=== PATIENT | male | born 1940 | race Caucasian/White ===

== ENCOUNTER 2017-06-26 11:49 | Inpatient (IN) | payer OTHER ==
[~2017-06-26] VITALS: Ht 188 cm; Wt 77.8 kg
[~2017-06-26 11:49] MED LIST: CALCIUM GUMMIE1 EACH PO; CELE100 PO; ENOX40I SC; HYDCHL12.5 PO; NAPR550 PO; Nephro-Vite RX1 EA PO; OXYACE5T PO; PROM25 PO
[2017-06-26 12:41] LABS: BASOPHILS ABSOLUTE AUTO 0.01 K/mm3 (0.00-0.23); BASOPHILS PERCENT AUTO 0 % (0-2); EOSINOPHILS ABSOLUTE AUTO 0.01 K/mm3 (0.00-0.68); EOSINOPHILS PERCENT AUTO 0 % (0-6); Hematocrit 38.8 % (37.0-53.0); Hemoglobin 12.4 g/dL (13.5-17.5); IMMATURE GRAN ABSOLUTE AUTO 0.06 K/mm3 (0.00-0.10); IMMATURE GRAN PERCENT AUTO 1 % (0-1); LYMPHOCYTES ABSOLUTE AUTO 0.53 K/mm3 (0.84-5.20); LYMPHOCYTES PERCENT AUTO 5 % (21-46); MONOCYTES ABSOLUTE AUTO 0.45 K/mm3 (0.16-1.47); MONOCYTES PERCENT AUTO 4 % (4-13); Mean Corpuscular HGB 30.8 pg (26.0-34.0); Mean Corpuscular Volume 97 fL (80-100); Mean Platelet Volume 10.6 fL (9.1-12.4); NEUTROPHILS ABSOLUTE AUTO 10.27 K/mm3 (1.96-9.15); NEUTROPHILS PERCENT AUTO 91 % (41-73); Platelet Count 257 K/mm3 (150-400); RDW Coefficient Variation 15.1 % (11.7-14.2); RDW Standard Deviation 53.6 fL (35.1-46.3); Red Blood Cell Count 4.02 M/mm3 (4.30-5.90); White Blood Cell Count 11.33 K/mm3 (4.00-11.30)
[2017-06-26 13:00] LABS: Alanine Aminotransfer (ALT/SGP 50 U/L (12-78); Albumin, Blood 2.8 g/dL (3.4-5.0); Albumin/Globulin Ratio 0.6 (0.8-1.8); Alk Phos 78 U/L (50-136); Anion Gap 6 mmol/L (6-16); Aspartate Aminotrans (AST/SGOT 31 U/L (12-37); Bilirubin, Total 0.5 mg/dL (0.1-1.0); Blood Urea Nitrogen 35 mg/dL (8-24); Bun/Creatinine Ratio 45.5 (12.0-20.0); CO2, Blood 29 mmol/L (21-32); Calcium, Blood 8.5 mg/dL (8.5-10.1); Chloride, Blood 103 mmol/L (98-108); Creatinine, Blood 0.77 mg/dL (0.60-1.20); Globulin, Blood 4.8 g/dL (2.2-4.0); Glomerular Filtration Rate >60 (60-); Glucose, Blood 180 mg/dL (70-99); Potassium, Blood 3.8 mmol/L (3.5-5.5); Sodium, Blood 138 mmol/L (136-145); Total Protein, Blood 7.6 g/dL (6.4-8.2); Troponin I <0.015 ng/mL (0.000-0.040)
[2017-06-26 13:38] LABS: Influenza A Negative (NEGATIVE); Influenza B Negative (NEGATIVE)
[2017-06-26 14:39] LABS: PO2 Arterial 56.4 mmHg (80-100)
[2017-06-26] MEDS ORDERED: POTASSIUM GLUC500 MG PO (16:47)
[2017-06-27 05:22] LABS: Hematocrit 38.4 % (37.0-53.0); Hemoglobin 12.4 g/dL (13.5-17.5); Mean Corpuscular HGB 30.5 pg (26.0-34.0); Mean Corpuscular HGB Conc 32.3 g/dL (31.5-36.5); Mean Corpuscular Volume 95 fL (80-100); Mean Platelet Volume 10.6 fL (9.1-12.4); Platelet Count 259 K/mm3 (150-400); Red Blood Cell Count 4.06 M/mm3 (4.30-5.90); White Blood Cell Count 7.41 K/mm3 (4.00-11.30)
[2017-06-27 05:43] LABS: Anion Gap 4 mmol/L (6-16); Blood Urea Nitrogen 32 mg/dL (8-24); Bun/Creatinine Ratio 46.9 (12.0-20.0); CO2, Blood 34 mmol/L (21-32); Calcium, Blood 8.5 mg/dL (8.5-10.1); Chloride, Blood 103 mmol/L (98-108); Creatinine, Blood 0.68 mg/dL (0.60-1.20); Glomerular Filtration Rate >60 (60-); Glucose, Blood 105 mg/dL (70-99); Potassium, Blood 4.4 mmol/L (3.5-5.5); Sodium, Blood 141 mmol/L (136-145)
[2017-06-30] MEDS ORDERED: AZIT500 PO (12:26)
[2017-06-30] MEDS ORDERED: POTA10T PO (12:27)
[2017-06-30] MEDS ORDERED: ALBU3IS INH (12:29)
== END 2017-06-30 14:48 | disposition home or self-care (01) | DRG 189 ==
LOC: ER 11:49 → MEDS 14:28
PROVIDERS: Emergency Medicine; Family Medicine
PROC: 3E0234Z Introduction of Serum, Toxoid and Vaccine into Muscle, Percutaneous Approach (ICD-10-PCS; principal; 2017-06-28)
DX: J96.01 Acute respiratory failure with hypoxia (principal); G93.41 Metabolic encephalopathy; J18.9 Pneumonia, unspecified organism; E87.3 Alkalosis; S22.069A Unspecified fracture of T7-T8 vertebra, initial encounter for closed fracture; J44.0 Chronic obstructive pulmonary disease with (acute) lower respiratory infection; Z23 Encounter for immunization; M81.0 Age-related osteoporosis without current pathological fracture; D64.89 Other specified anemias; I10 Essential (primary) hypertension; I71.2 Thoracic aortic aneurysm, without rupture; Z79.899 Other long term (current) drug therapy; Z87.891 Personal history of nicotine dependence
CPT/HCPCS: 36415; 36600; 71046; 71250; 80048; 80053; 82803; 82947; 83880; 84484; 85025; 85027; 87804; 93005; 93010; 94640; 94760; 94761; 96365; 99285; C9113; J0696; J1650; J7030; Q2038

== ENCOUNTER 2021-02-25 15:04 | Inpatient (IN) | payer OTHER ==
[~2021-02-25] VITALS: Ht 180.3 cm; Wt 77.1 kg
[~2021-02-25 15:04] MED LIST changes: +ALBU3IS INH; +AZIT500 PO; +POTA10T PO; +POTASSIUM GLUC500 MG PO
[2021-02-25] MEDS ORDERED: Aspir 8181 MG PO (15:27)
[2021-02-25 20:37] LABS: Anion Gap 3 mmol/L (6-16); Blood Urea Nitrogen 34 mg/dL (8-24); Bun/Creatinine Ratio 30.6 (12.0-20.0); CO2, Blood 32 mmol/L (21-32); Calcium, Blood 7.7 mg/dL (8.5-10.1); Chloride, Blood 105 mmol/L (98-108); Creatinine, Blood 1.11 mg/dL (0.60-1.20); Glomerular Filtration Rate >60 (60-); Glucose, Blood 114 mg/dL (70-99); Potassium, Blood 4.1 mmol/L (3.5-5.5); Sodium, Blood 140 mmol/L (136-145)
[2021-02-25] MEDS ORDERED: FLUTICASONE-SA1 EAC9 INH (21:53)
[2021-02-25] MEDS ORDERED: TAMSULOSIN HCL0.4 M1 PO (21:53)
[2021-02-25 22:01] LABS: Mean Platelet Volume 11.6 fL (9.1-12.4); Platelet Count 131 K/mm3 (150-400)
[2021-02-25 22:33] LABS: International Normalized Ratio 0.97; Prothrombin Time Results 10.5 Sec (9.7-11.5)
[2021-02-26 04:32] LABS: Hematocrit 42.1 % (37.0-53.0); Hemoglobin 13.9 g/dL (13.5-17.5); Mean Corpuscular HGB 31.8 pg (26.0-34.0); Mean Corpuscular Volume 96 fL (80-100); Mean Platelet Volume 11.2 fL (9.1-12.4); Platelet Count 118 K/mm3 (150-400); RDW Coefficient Variation 13.9 % (11.7-14.2); RDW Standard Deviation 49.8 fL (35.1-46.3); Red Blood Cell Count 4.37 M/mm3 (4.30-5.90); White Blood Cell Count 9.57 K/mm3 (4.00-11.30)
--- NOTE | 2021-02-26 11:12 | NUR ---
RECEIVED FAXED RESULTS OF COVID TEST THAT WAS DONE 02/25/21 AT [facility]
--- NOTE | 2021-02-26 13:10 | NUR ---
1308 HEPARIN TURNED OFF PER PHARMACY ORDERS
--- NOTE | 2021-02-26 14:26 | NUR ---
to [facility] via bed
--- NOTE | 2021-02-26 15:30 | NUR ---
REPORT GIVEN TO RECEIVING RN CARLIE
[2021-02-26 16:19] LABS: Source, Urine Catheter
[2021-02-26 16:22] LABS: Appearance, Urine Clear (Clear); Bilirubin, Urine Neg (Neg); Blood, Urine 1+ (Neg); Color, Urine Yellow (P-Yellow); Glucose Qualitative, Urine Neg (Neg); Ketones, Urine 3+ (Neg); Leukocyte Esterase, Urine Neg (Neg); Nitrite, Urine Neg (Neg); Protein, Urine 2+ (Neg); Urobilinogen, Urine NORM (Normal)
--- NOTE | 2021-02-26 16:30 | NUR ---
PATIENT ARRIVAL TO PCU PATIENT ARRIVED FROM [facility]ER PEELER TO PCU BY PCU BED AT 1620. PATIENT IS A/O X4. VSS. SPO2 >90% ON 3L NC. TELE SR. PATIENT HAS A LEFT GROIN SITE WITH AN INFUSION PORT AND SHEATH PORT; SITE IS NON TENDER, NO REDDNESS, NO HEMATMA NOTED, NO BLEEDING. PATIENT IS LYING FLAT. PATIENT IS CALM, HAPPY, AND TALKING/SINGING TO HIMSELF. MONITORING VS EVERY 15 MIN AND SITE FOR THE FIRST HOUR. WILL CONTINUE TO MONITOR AND PROVIDE CARE. CALL LIGHT WITHIN REACH.
[2021-02-26 16:55] LABS: Amorphous Not Seen (0-Heavy); Bacteria Mod /hpf; Red Blood Cells, Urine 0-2 /hpf (0-2); Squamous Epithelial Cells Few /hpf (Few); White Blood Cells, Urine 0-2 /hpf (0-5)
--- NOTE | 2021-02-26 18:01 | NUR ---
SHIFT SUMMARY PATIENT IS A/OX4, ALL CRANIAL NERVES INTACT, PATIENT SINGING/TALKING TO SELF, HAPPY AND TALKATIVE. Q4 NEURO CHECKS. TELE SINUS TACHY MAX OF 110. VSS. Q15 MONITOR VS FOR Q4HR. PATIENT WAS ABLE TO EAT DINNER. PATIENT NPO AT MIDNIGHT FOR BALL MILL OPERATOR IN THE AM. PATIENT POSTIONED AT 30 DEGREES. LEFT GROIN SITE HAS NO HEMATOMA OR REDNESS. SHEATH HAS TPA INFUSING AND HEPARIN PER ORDER. NO ACUTE CHANGES. CALL LIGHT WITHIN REACH. WILL CONTINUE TO MONITOR AND PROVIDE CARE UNTIL HAND OFF WITH NEXT SHIFT.
[2021-02-26 18:30] LABS: Fibrinogen 488 mg/dL (170-430)
--- NOTE | 2021-02-26 22:51 | NUR ---
UPDATE: CONFUSION, RESTLESSNESS. PT REMAINS LAYING SUPINE, BED POSITIONED IN REVERSE [place]. PT HEARD MUMBLING TO HIMSELF, INTERMITTENTLY CALLS OUT INAPPROPRIATELY W/ SEEMINGLY RANDOM SUBJECTS, OFTEN RELATED TO HINDU. WHEN CONFRONTED, PT APPEARS SLIGHTLY AGITATED, REFERRING TO HIMSELF "YOUR GUINEA PIG". SUGGESTED PRN MELATONIN TO PT & HE IS AGREEABLE. MEDICATED ACCORDINGLY. WILL CONTINUE TO MONITOR FOR INC AGITATION & ADDRESS APPROPRIATE. APPEARS TO BE CONTINUING TO BE COMPLIANT IN KEEPING LLE STRAIGHT & LAYING SUPINE.
--- NOTE | 2021-02-27 02:00 | NUR ---
UPDATE: AGITATION & HYPOXIA. PT CONTINUES TO COMPLY W/ LAYING SUPINE, HOWEVER PT DOES NOT TOLERATE NC & OFTEN PULLS IT OUT OF HIS NOSE. WHEN ASLEEP PT DESATS TO 80s. AFTER REPLACING O2, PT QUICKLY RECOVERS. WILL CONTINUE TO MONITOR CLOSELY. PEDAL PULSES STILL FAINT TO PALPATION BUT IMPROVING. DISTAL CSM TO L GROIN SITE REMAINS INTACT.
[2021-02-27 04:59] LABS: Hematocrit 38.8 % (37.0-53.0); Hemoglobin 12.7 g/dL (13.5-17.5)
--- NOTE | 2021-02-27 07:19 | NUR ---
SHIFT SUMMARY: PT RESTED WELL T/O THE NIGHT, AWAKING FOR NURSING CARE. PT OFTEN PULLED THE NC FROM HIS NARES & DISSENTED WHEN STAFF ATTEMPTED TO REPLACE IT. SEE PREVIOUS NOTATION FOR PROGRESSION. PLAN FOR YARD HOSTLER TODAY @ APPROX 0800. DAY SHIFT UPDATED. NO ACUTE CHANGES. DISTAL CSM TO L GROIN SITE REMAINS INTACT, PULSES IMPROVED T/O THE NIGHT, NOW PALPABLE W/O DOPPLER.
--- NOTE | 2021-02-27 07:35 | NUR ---
CARE ASSUMPTION/TO SUPERVISOR MOTOR VEHICLE ASSEMBLY PATIENT A/O X4. PATIENT HAS AN ECCENTRIC BEHAVIOR, PATIENT WILL TALK TO SELF, SING TO SELF, AND SAYS BIBLE VERSES. VSS. SPO2 >90% 3L NC. TELE SINUS TACH W PAC. LEFT GROIN SITE HAS SCANT AMOUNT OF BLOOD UNDER DRESSING, THE SAME AMOUNT YESTERDAY WHEN I PROVIDED CARE, NO HEMATOMA, OR TENDERNESS. PATIENT COMPLAINS OF LEFT SIDE PAIN WHEN TAKING A DEEP BREATH, BUT UPON PALPATION IS NONTENDER, AND ABD IS NONTENDER AND SOFT, AND ACTIVE. LEFT LOWER LOBE IS WHEEZY, RIGHT LUNG IS CLEAR. PATIENT LEFT TO SUPERVISOR MOTOR VEHICLE ASSEMBLY AT 0747 WITH SUPERVISOR MOTOR VEHICLE ASSEMBLY RN AND WENT BY PCU BED.
--- NOTE | 2021-02-27 10:35 | NUR ---
PATIENT BACK FROM CHARGE ATTENDANT PATIENT ARRIVED FROM CHARGE ATTENDANT APROX 1025 FROM CHARGE ATTENDANT VIA PCU BED. VSS. PATIENT L GROIN SITE WITH NEPUTUNE BANADGAE IN PLACE AND ENCLOSED [id number]. L EXTERNAL ILIAC 2 STENTS PLACED. SITE HAS NO BLEEDING, REDDNESS, BUT SLIGHTLTY SWOLLEN COMPARED TO OTHER SIDE. PATIENT BED IN LOWEST POSITION. CALL LIGHT WITHIN REACH. Q15 VITAL FOR 4HR STARTED. WILL CONTINUE TO MONITOR AND PROVIDE CARE.
--- NOTE | 2021-02-27 13:15 | NUR ---
UPDATE PATIENT AMBULATED IN BEDROOM. RIGHT GROIN SITE BEGAN TO OOZ, THE OOZING COVERED THE PHILLY BANDAGE. PRESSURE WAS APPLIED, AND THIS RN HAD RED CROSS EXECUTIVE DIRECTOR COME TO LOOK AT. THE SITE WAS CLEANED AND NO MORE OOZING. A NEW PIHLLY BANDAGE WAS PUT IN PLACE. CALL LIGHT WITHIN REACH AND BED ALARM ON.
--- NOTE | 2021-02-27 15:00 | NUR ---
UPDATE PATIENT HAS NO OOZING AT R GROIN SITE. NO HEMATOMA, SWELLING, OR REDDNESS. PATIENT AMBULATED IN BEDROOM. NO OOZING AFTER AMBULATION. NOTIFED MD TATE. MD TATE PUT IN AN ORDER FOR PATIENT TO BE DISCHARGED. CALL LIGHT WITHIN REACH.
[2021-02-27] MEDS ORDERED: CLOP75 PO (15:43)
[2021-02-27] MEDS ORDERED: DECADRON6 M1 PO (15:45)
--- NOTE | 2021-02-27 16:58 | NUR ---
DISCHARGE EDUCATION THIS RN EDUCATED PATIENT ON DISCHARGE. THIS RN PROVIDED EDUCATION OF FEMORAL SITE AND NEW MEDICATIONS THE PATIENT WOULD BE RECEIVING, PLAVIX AND DECADRON. THIS RN CALLED [facility] FOR PATIENT TO RECEIVE NEW MEDICATIONS TODAY. PATIENT INFORMED OF FOLLOW UP WITH PCP AND MD JENKINS IN TWO WEEKS AND TO CALL ON MONDAY TO SCHEUDLE AN APPT. PATIENT BELONGINGS GATHERED AND INTO HIS OWN CLOTHES. PATIENT IV REMOVED AND OFF TELE. CALL LIGHT WITHIN REACH AND AWAITING RIDE TO ARRIVE.
--- NOTE | 2021-02-27 17:12 | NUR ---
FRANCISCO JAVIER DISCHARGED PATIENT LEFT AT 1712. PATIENT WAS TAKEN WITH ALL BELONGINGS AND DISCHARGE INSTRUCTIONS. PATIENT LEFT VIA WHEELCHAIR TO FAMILY MEMBER WHO PICKED THEM UP.
== END 2021-02-27 15:37 | disposition home or self-care (01) | DRG 253 ==
LOC: ER 15:04 → SURS 15:05 → PCU 02-26 14:02
PROVIDERS: Internal Medicine; Student in an Organized Health Care Education/Training Program; ADMIT Internal Medicine
PROC: 3E05317 Introduction of Other Thrombolytic into Peripheral Artery, Percutaneous Approach (ICD-10-PCS; 2021-02-26)
PROC: 8E0ZXY6 Isolation (ICD-10-PCS; 2021-02-26)
PROC: 047H3EZ Dilation of Right External Iliac Artery with Two Intraluminal Devices, Percutaneous Approach (ICD-10-PCS; principal; 2021-02-27)
PROC: 04FH3ZZ Fragmentation of Right External Iliac Artery, Percutaneous Approach (ICD-10-PCS; 2021-02-27)
PROC: 3E03317 Introduction of Other Thrombolytic into Peripheral Vein, Percutaneous Approach (ICD-10-PCS; 2021-02-27)
DX: I70.221 Atherosclerosis of native arteries of extremities with rest pain, right leg (principal); J96.11 Chronic respiratory failure with hypoxia; I10 Essential (primary) hypertension; J43.9 Emphysema, unspecified; M81.0 Age-related osteoporosis without current pathological fracture; Z98.890 Other specified postprocedural states; Z96.641 Presence of right artificial hip joint; Z87.891 Personal history of nicotine dependence; Z79.82 Long term (current) use of aspirin; Z79.899 Other long term (current) drug therapy; N40.0 Benign prostatic hyperplasia without lower urinary tract symptoms; I71.4 Abdominal aortic aneurysm, without rupture; Z20.822 Contact with and (suspected) exposure to COVID-19
CPT/HCPCS: 36245; 36415; 37184; 37211; 37221; 75625; 75635; 75710; 75716; 76937; 80048; 81001; 85014; 85018; 85027; 85049; 85347; 85379; 85384; 85610; 85730; 87086; 93005; 93010; 93306; 93926; 93971; 96374; 96375; 96376; 99152; 99153; 99285-25; A9270; C1725; C1751; C1757; C1760; C1769; C1876; C1887; C1894; G0378; J1644; J2060; J2250; J2997; J3010; J7030; J7040; J7050; Q9967

== ENCOUNTER 2022-04-06 18:29 | Emergency (ER) | payer OTHER ==
[~2022-04-06] VITALS: Ht 185.4 cm; Wt 81.2 kg
[~2022-04-06 18:29] MED LIST changes: +Aspir 8181 MG PO; +CLOP75 PO; +DECADRON6 M1 PO; +FLUTICASONE-SA1 EAC9 INH; +TAMSULOSIN HCL0.4 M1 PO
[2022-04-06] MEDS ORDERED: ATORVASTATIN CA20 MG PO (19:24)
[2022-04-06 19:32] LABS: BASOPHILS ABSOLUTE AUTO 0.02 K/mm3 (0.00-0.23); BASOPHILS PERCENT AUTO 0 % (0-2); EOSINOPHILS ABSOLUTE AUTO 0.01 K/mm3 (0.00-0.68); EOSINOPHILS PERCENT AUTO 0 % (0-6); Hematocrit 37.5 % (37.0-53.0); Hemoglobin 12.6 g/dL (13.5-17.5); IMMATURE GRAN ABSOLUTE AUTO 0.05 K/mm3 (0.00-0.10); IMMATURE GRAN PERCENT AUTO 0 % (0-1); LYMPHOCYTES ABSOLUTE AUTO 0.66 K/mm3 (0.84-5.20); LYMPHOCYTES PERCENT AUTO 5 % (21-46); MONOCYTES ABSOLUTE AUTO 1.21 K/mm3 (0.16-1.47); MONOCYTES PERCENT AUTO 10 % (4-13); Mean Corpuscular HGB 32.5 pg (26.0-34.0); Mean Corpuscular HGB Conc 33.6 g/dL (31.5-36.5); Mean Corpuscular Volume 97 fL (80-100); Mean Platelet Volume 11.6 fL (9.1-12.4); NEUTROPHILS ABSOLUTE AUTO 10.63 K/mm3 (1.96-9.15); NEUTROPHILS PERCENT AUTO 85 % (41-73); Platelet Count 215 K/mm3 (150-400); RDW Coefficient Variation 13.6 % (11.7-14.2); RDW Standard Deviation 48.6 fL (35.1-46.3); Red Blood Cell Count 3.88 M/mm3 (4.30-5.90); White Blood Cell Count 12.58 K/mm3 (4.00-11.30)
[2022-04-06 19:35] LABS: Albumin, Blood 3.2 g/dL (3.4-5.0); Albumin/Globulin Ratio 0.7 (0.8-1.8); Bilirubin, Total 0.4 mg/dL (0.1-1.0); Bun/Creatinine Ratio 35.6 (12.0-20.0); Calcium, Blood 9.2 mg/dL (8.5-10.1); Creatinine, Blood 0.79 mg/dL (0.60-1.20); Globulin, Blood 4.3 g/dL (2.2-4.0); Total Protein, Blood 7.5 g/dL (6.4-8.2)
[2022-04-06 21:01] LABS: Source, Urine Clean Catch
[2022-04-06 21:04] LABS: Appearance, Urine Clear (Clear); Bilirubin, Urine Neg (Neg); Blood, Urine 2+ (Neg); Color, Urine Yellow (P-Yellow); Glucose Qualitative, Urine Neg (Neg); Ketones, Urine 2+ (Neg); Leukocyte Esterase, Urine 1+ (Neg); Nitrite, Urine Neg (Neg); Protein, Urine 3+ (Neg); Urobilinogen, Urine NORM (Normal)
[2022-04-06 21:11] LABS: Hyaline Casts 0-2 /lpf (0-2)
[2022-04-06 21:12] LABS: Amorphous Light (0-Heavy); Bacteria Few /hpf; Mucus Mod (0-Heavy); Red Blood Cells, Urine 0-2 /hpf (0-2); Renal Epithelial Few /hpf (0-Rare); Squamous Epithelial Cells Few /hpf (Few); White Blood Cells, Urine 0-2 /hpf (0-5)
[2022-04-06] MEDS ORDERED: HYDR1TAB94 PO (23:51)
== END 2022-04-07 00:11 | disposition home or self-care (01) ==
LOC: ER 18:29
PROVIDERS: Physician Assistant
DX: K80.20 Calculus of gallbladder without cholecystitis without obstruction (principal); K85.90 Acute pancreatitis without necrosis or infection, unspecified; I10 Essential (primary) hypertension; J43.9 Emphysema, unspecified; Z79.899 Other long term (current) drug therapy; Z79.82 Long term (current) use of aspirin; Z87.891 Personal history of nicotine dependence
CPT/HCPCS: 36415; 51702; 74176; 80053; 81001; 83690; 85025; 87086; A9270; J2405; J7030

== ENCOUNTER 2023-07-11 12:34 | Observation (INO) | payer OTHER ==
[~2023-07-11] VITALS: Ht 182.9 cm; Wt 82.2 kg
[~2023-07-11 12:34] MED LIST changes: +ATORVASTATIN CA20 MG PO; +HYDR1TAB94 PO
[2023-07-11 13:16] LABS: BASOPHILS ABSOLUTE AUTO 0.03 K/mm3 (0.00-0.23); BASOPHILS PERCENT AUTO 1 % (0-2); EOSINOPHILS ABSOLUTE AUTO 0.18 K/mm3 (0.00-0.68); EOSINOPHILS PERCENT AUTO 4 % (0-6); Hematocrit 45.2 % (37.0-53.0); Hemoglobin 14.7 g/dL (13.5-17.5); IMMATURE GRAN ABSOLUTE AUTO 0.02 K/mm3 (0.00-0.10); IMMATURE GRAN PERCENT AUTO 0 % (0-1); LYMPHOCYTES ABSOLUTE AUTO 0.56 K/mm3 (0.84-5.20); LYMPHOCYTES PERCENT AUTO 11 % (21-46); MONOCYTES ABSOLUTE AUTO 0.38 K/mm3 (0.16-1.47); MONOCYTES PERCENT AUTO 8 % (4-13); Mean Corpuscular HGB Conc 32.5 g/dL (31.5-36.5); Mean Corpuscular Volume 95 fL (80-100); Mean Platelet Volume 10.6 fL (9.1-12.4); NEUTROPHILS ABSOLUTE AUTO 3.84 K/mm3 (1.96-9.15); NEUTROPHILS PERCENT AUTO 77 % (41-73); Platelet Count 167 K/mm3 (150-400); RDW Standard Deviation 46.1 fL (35.1-46.3); Red Blood Cell Count 4.74 M/mm3 (4.30-5.90); White Blood Cell Count 5.01 K/mm3 (4.00-11.30)
[2023-07-11 13:39] LABS: Albumin, Blood 4.3 g/dL (3.4-5.0); Albumin/Globulin Ratio 1.3 (0.8-1.8); Bilirubin, Total 0.7 mg/dL (0.1-1.0); Bun/Creatinine Ratio 32.3 (12.0-20.0); Calcium, Blood 8.9 mg/dL (8.5-10.1); Creatinine, Blood 0.84 mg/dL (0.60-1.20); Globulin, Blood 3.4 g/dL (2.2-4.0); Potassium, Blood 4.4 mmol/L (3.5-5.5); Total Protein, Blood 7.7 g/dL (6.4-8.2)
[2023-07-11] MEDS ORDERED: NAPR220 PO (14:27)
[2023-07-11] MEDS ORDERED: TAMS.4ER PO (14:28)
[2023-07-11] MEDS ORDERED: Ipratropium/Albuterol SulF 2.5-0.5MG/3 ML Amp INH SCH (16:20)
[2023-07-11] MEDS ORDERED: Nitroglycerin 0.4 MG SUBL SL PRN (16:20)
[2023-07-11] MEDS ORDERED: Acetaminophen 325 MG TABLET PO PRN (16:25)
[2023-07-11] MEDS ORDERED: Aspirin 325 MG Tab PO ONE (16:25)
[2023-07-11] MEDS ORDERED: Morphine Sulfate 4 MG/1 ML Injection IV PRN (16:25)
[2023-07-11] MEDS ORDERED: FLU VACC QS2023-24(6MOS UP)/PF 60 MCG/0.5 ML SYRINGE IM SCH (16:25)
[2023-07-11] MEDS ORDERED: Ondansetron HCl 2 MG / ML 2ML Vial IV PRN (16:25)
[2023-07-11] MEDS ORDERED: Melatonin 5 MG Tablet PO PRN (16:25)
[2023-07-11 17:08] LABS: Anti-Xa UFH, PHA Monitoring <0.10 IU/mL; International Normalized Ratio 1.03; Prothrombin Time Results 10.8 Sec (9.7-11.5)
[2023-07-11] MEDS ORDERED: Heparin Sodium,Porcine/0.5 NS 500 ML IV SCH (17:15)
[2023-07-11] MEDS ORDERED: Heparin Sodium 5000 Units/ML 1ML MDV IV ONE (17:15)
--- NOTE | 2023-07-11 18:29 | NUR ---
RN TO RN PHONE REPORT RECEVED A 1819 FROM TIP HATHAWAY IN ER.
--- NOTE | 2023-07-11 19:17 | NUR ---
PATIENT ARRIVED TO UNIT AT 1900 IN NO APPARENT DISTRESS.
[2023-07-11 19:38] VITALS: BP 117/77
--- NOTE | 2023-07-11 21:35 | NUR ---
PT A&OX4 INDEPENDENT IN ROOM. PT HX COPD 2LNC BASELINE POX97%. PT ON TELE HX AFIB HTN SR WITH PVC 96 BPM. PT SCHEDULED FOR STRESS TEST TOMORROW NPO AT MIDNIGHT. PT TOOK MEDS WHOLE WITH WATER WITH ISSUES. PT REPORTS INDEPENDENT AT HOME LIVES WITH AND DAUGHTER. PT SKIN ASSESSMENT NONREMARKABLE SCATTERED SCRATCHES FROM YARDWORK BUE HEALING, PT HAS CALL THOMAS WITHIN REACH, BED LOWERED WILL CONTINUE TO [facility].
[2023-07-12 04:21] VITALS: BP 115/88
[2023-07-12 04:26] LABS: BASOPHILS ABSOLUTE AUTO 0.06 K/mm3 (0.00-0.23); BASOPHILS PERCENT AUTO 1 % (0-2); EOSINOPHILS ABSOLUTE AUTO 0.32 K/mm3 (0.00-0.68); EOSINOPHILS PERCENT AUTO 6 % (0-6); Hematocrit 42.4 % (37.0-53.0); Hemoglobin 13.9 g/dL (13.5-17.5); IMMATURE GRAN ABSOLUTE AUTO 0.02 K/mm3 (0.00-0.10); IMMATURE GRAN PERCENT AUTO 0 % (0-1); LYMPHOCYTES ABSOLUTE AUTO 1.24 K/mm3 (0.84-5.20); LYMPHOCYTES PERCENT AUTO 23 % (21-46); MONOCYTES ABSOLUTE AUTO 0.55 K/mm3 (0.16-1.47); MONOCYTES PERCENT AUTO 10 % (4-13); Mean Corpuscular HGB 31.3 pg (26.0-34.0); Mean Corpuscular HGB Conc 32.8 g/dL (31.5-36.5); Mean Corpuscular Volume 96 fL (80-100); Mean Platelet Volume 10.6 fL (9.1-12.4); NEUTROPHILS ABSOLUTE AUTO 3.27 K/mm3 (1.96-9.15); NEUTROPHILS PERCENT AUTO 60 % (41-73); Platelet Count 168 K/mm3 (150-400); RDW Coefficient Variation 13.1 % (11.7-14.2); RDW Standard Deviation 45.6 fL (35.1-46.3); Red Blood Cell Count 4.44 M/mm3 (4.30-5.90); White Blood Cell Count 5.46 K/mm3 (4.00-11.30)
[2023-07-12 04:46] LABS: Albumin, Blood 3.6 g/dL (3.4-5.0); Albumin/Globulin Ratio 1.1 (0.8-1.8); Bilirubin, Total 0.6 mg/dL (0.1-1.0); Bun/Creatinine Ratio 30.6 (12.0-20.0); Calcium, Blood 8.9 mg/dL (8.5-10.1); Creatinine, Blood 0.92 mg/dL (0.60-1.20); Globulin, Blood 3.3 g/dL (2.2-4.0); Potassium, Blood 4.1 mmol/L (3.5-5.5); Total Protein, Blood 6.9 g/dL (6.4-8.2)
[2023-07-12] MEDS ORDERED: Dose Adjust by Pharmacy XX STA ×2 (05:55→14:07)
--- NOTE | 2023-07-12 06:06 | NUR ---
PER HEMATOLOGY, CRITICAL HEPARIN LEVEL 1.01 @ 0550. SPOKE WITH PHARMACIST, MARK, AND WAS ADVISED TO HOLD HEPARIN DRIP FROM [phone].
[2023-07-12 08:55] VITALS: BP 115/87
[2023-07-12] MEDS ORDERED: Acetaminophen 500 MG Tab PO PRN (12:25)
[2023-07-12] MEDS ORDERED: Polyethylene Glycol 3350 17 gm PO PRN (12:25)
[2023-07-12 13:27] LABS: Hematocrit 43.3 % (37.0-53.0); Hemoglobin 13.9 g/dL (13.5-17.5); Platelet Count 162 K/mm3 (150-400)
[2023-07-12 16:03] VITALS: BP 106/78
[2023-07-12 19:30] VITALS: BP 112/89
--- NOTE | 2023-07-12 19:30 | NUR ---
SHIFT SUMMARY PATIENT WITH NO ACUTE EVENTS DURING SHIFT. 2LPM NC BASELINE AND CURRENTLY. HE GETS UP TO THE BATHROOM SBA AND USES CALL LIGHT APPROPRIATELY. BED IN LOW POSITION, CALL LIGHT IN REACH.
[2023-07-12] MEDS ORDERED: Docusate Sodium/Senna 1 Tab PO SCH (21:00)
[2023-07-13 02:31] VITALS: BP 121/82
--- NOTE | 2023-07-13 04:34 | NUR ---
SHIFT SUMMARY: PT PLEASANT AND VERY TALKATIVE THROUGH THE SHIFT. PT FORGETFUL AND REPEATING HIS QUESTIONS OR STORIES. PT SLEPT FOR ABOUT HALF THE NIGHT. HEPARIN INFUSING PER ORDERS THROUGH THE NIGHT. PT NPO AFTER MIDNIGHT. COMPLIANCE OFFICER NOTIFIED OF NPO STATUS AND THAT AM TRAY NEEDS HELD UNTIL AFTER HIS SCHEDULED STRESS TEST IS COMPLETED. PT ADAMANT ABOUT WANTING TO GO HOME TODAY FOLLOWING HIS TESTING. TELE - SR, HR 100. NO ACUTE CHANGES THROUGH THE NIGHT. 07/13/23 DACIA TOMLINSON RN
[2023-07-13 05:57] LABS: Hemoglobin 12.3 g/dL (13.5-17.5); Mean Platelet Volume 10.9 fL (9.1-12.4); Platelet Count 153 K/mm3 (150-400)
[2023-07-13 07:05] VITALS: BP 123/75
[2023-07-13] MEDS ORDERED: Caffeine Citrated 60 MG/3 ML Vial ONE (09:02)
[2023-07-13] MEDS ORDERED: Regadenoson 0.4 MG/5 ML SYRINGE ONE (09:02)
--- NOTE | 2023-07-13 15:55 | NUR ---
PATIENT DC TO HOME WITH FAMILY. DC INSTRUCTIONS AND EDUCATION DISCUSSED WITH PATIENT AND COPY PROVIDED. NO NEW RX MEDICATIONS. PATIENT TO FOLLOW UP WITH PCP. DENIES ANY FURTHER QUESTIONS OR CONCERNS.
== END 2023-07-13 15:45 | disposition home or self-care (01) ==
LOC: ER 12:34 → MEDS 12:35 → ER 16:43 → PCU 16:43 → MEDS 18:53
PROVIDERS: Physician Assistant; ADMIT Internal Medicine
DX: R07.89 Other chest pain (principal); I10 Essential (primary) hypertension; J44.9 Chronic obstructive pulmonary disease, unspecified; N40.0 Benign prostatic hyperplasia without lower urinary tract symptoms; I73.9 Peripheral vascular disease, unspecified; J96.11 Chronic respiratory failure with hypoxia; I71.40 Abdominal aortic aneurysm, without rupture, unspecified; Z86.16 Personal history of COVID-19; Z79.899 Other long term (current) drug therapy
CPT/HCPCS: 36415; 36416; 71046; 78452; 80053; 83880; 84484; 85014; 85018; 85025; 85049; 85520; 85610; 85730; 93005; 93010; 93017; 94640; 94664; 94760; 94762; 96365; 96366; 96374; 96376; 99285-25; A9270; A9500; G0378; J0706; J1644; J2785

== ENCOUNTER 2023-08-04 20:36 | Emergency (ER) | payer OTHER ==
[~2023-08-04] VITALS: Ht 182.9 cm; Wt 80.7 kg
[~2023-08-04 20:36] MED LIST changes: +NAPR220 PO; +TAMS.4ER PO
[2023-08-04 21:51] VITALS: BP 101/72
[2023-08-04 22:31] LABS: BASOPHILS ABSOLUTE AUTO 0.04 K/mm3 (0.00-0.23); BASOPHILS PERCENT AUTO 1 % (0-2); EOSINOPHILS ABSOLUTE AUTO 0.19 K/mm3 (0.00-0.68); EOSINOPHILS PERCENT AUTO 4 % (0-6); Hematocrit 40.7 % (37.0-53.0); Hemoglobin 13.2 g/dL (13.5-17.5); IMMATURE GRAN ABSOLUTE AUTO 0.01 K/mm3 (0.00-0.10); IMMATURE GRAN PERCENT AUTO 0 % (0-1); LYMPHOCYTES ABSOLUTE AUTO 0.64 K/mm3 (0.84-5.20); LYMPHOCYTES PERCENT AUTO 13 % (21-46); MONOCYTES ABSOLUTE AUTO 0.48 K/mm3 (0.16-1.47); MONOCYTES PERCENT AUTO 10 % (4-13); Mean Corpuscular HGB 31.2 pg (26.0-34.0); Mean Corpuscular HGB Conc 32.4 g/dL (31.5-36.5); Mean Corpuscular Volume 96 fL (80-100); NEUTROPHILS ABSOLUTE AUTO 3.52 K/mm3 (1.96-9.15); NEUTROPHILS PERCENT AUTO 72 % (41-73); Platelet Count 153 K/mm3 (150-400); RDW Coefficient Variation 13.5 % (11.7-14.2); RDW Standard Deviation 47.8 fL (35.1-46.3); Red Blood Cell Count 4.23 M/mm3 (4.30-5.90); White Blood Cell Count 4.88 K/mm3 (4.00-11.30)
[2023-08-04 22:52] LABS: Magnesium, Blood 2.3 mg/dL (1.6-2.4)
[2023-08-04 22:53] LABS: Alanine Aminotransfer (ALT/SGP 20 U/L (12-78); Albumin/Globulin Ratio 1.3 (0.8-1.8); Alk Phos 89 U/L (50-136); Anion Gap Unable to Calculate mmol/L (6-16); Aspartate Aminotrans (AST/SGOT 18 U/L (12-37); Bilirubin, Total 0.4 mg/dL (0.1-1.0); Blood Urea Nitrogen 39 mg/dL (8-24); Bun/Creatinine Ratio 44.5 (12.0-20.0); CO2, Blood 33 mmol/L (21-32); Calcium, Blood 9.3 mg/dL (8.5-10.1); Chloride, Blood 108 mmol/L (98-108); Creatinine, Blood 0.88 mg/dL (0.60-1.20); Globulin, Blood 3.1 g/dL (2.2-4.0); Glomerular Filtration Rate 86 (60-); Glucose, Blood 106 mg/dL (70-99); Potassium, Blood 4.1 mmol/L (3.5-5.5); Sodium, Blood 140 mmol/L (136-145); Total Protein, Blood 7.1 g/dL (6.4-8.2)
== END 2023-08-05 00:47 | disposition left against medical advice (07) ==
LOC: ER 20:36
PROVIDERS: Physician Assistant
DX: R50.9 Fever, unspecified (principal); Z53.29 Procedure and treatment not carried out because of patient's decision for other reasons
CPT/HCPCS: 80053; 83735; 84484; 85025; 93005; 93010; 99282-25

== ENCOUNTER 2024-08-06 12:54 | Emergency (ER) | payer OTHER ==
[~2024-08-06] VITALS: Ht 185.4 cm; Wt 67.6 kg
[2024-08-06 13:03] VITALS: BP 104/44
[2024-08-06 14:43] LABS: Influenza A, PCR NEGATIVE (NEGATIVE); Influenza B, PCR NEGATIVE (NEGATIVE); Resp Syncytial Virus, PCR NEGATIVE (NEGATIVE); SARS-Cov-2 (COVID-19) PCR, MMC NEGATIVE (NEGATIVE)
== END 2024-08-06 16:03 | disposition home or self-care (01) ==
LOC: ER 12:54
PROVIDERS: Physician Assistant
DX: B34.9 Viral infection, unspecified (principal); I10 Essential (primary) hypertension; J43.9 Emphysema, unspecified; F03.90 Unspecified dementia, unspecified severity, without behavioral disturbance, psychotic disturbance, mood disturbance, and anxiety; M81.0 Age-related osteoporosis without current pathological fracture; Z99.81 Dependence on supplemental oxygen; Z87.891 Personal history of nicotine dependence; Z79.82 Long term (current) use of aspirin; Z79.899 Other long term (current) drug therapy
CPT/HCPCS: 0241U; 71046; 99283-25

== ENCOUNTER 2024-10-30 09:16 | Day surgery (SDC) | payer OTHER ==
[~2024-10-30] VITALS: Ht 182.9 cm; Wt 77.0 kg
[2024-10-30 15:30] VITALS: BP 101/90
== END 2024-10-30 16:15 | disposition home or self-care (01) ==
LOC: MHTC 09:16
DX: I25.10 Atherosclerotic heart disease of native coronary artery without angina pectoris (principal); I25.84 Coronary atherosclerosis due to calcified coronary lesion; I71.21 Aneurysm of the ascending aorta, without rupture; I71.43 Infrarenal abdominal aortic aneurysm, without rupture; J44.9 Chronic obstructive pulmonary disease, unspecified; I10 Essential (primary) hypertension; E78.5 Hyperlipidemia, unspecified; N40.0 Benign prostatic hyperplasia without lower urinary tract symptoms; Z87.891 Personal history of nicotine dependence; Z79.02 Long term (current) use of antithrombotics/antiplatelets; Z79.899 Other long term (current) drug therapy; Z95.820 Peripheral vascular angioplasty status with implants and grafts; Z99.81 Dependence on supplemental oxygen

== ENCOUNTER 2025-01-31 19:56 | Emergency (ER) | payer OTHER ==
[~2025-01-31] VITALS: Ht 182.9 cm; Wt 67.6 kg
[~2025-01-31 19:56] MED LIST changes: +ALBU90OI; +Isosorbide Mono30 MG PO; +METO25ER PO; +PANT40 PO
[2025-01-31 20:10] VITALS: BP 130/86
[2025-01-31 20:54] LABS: Alanine Aminotransfer (ALT/SGP 21.0 U/L (12-78); Albumin, Blood 2.8 g/dL (3.4-5.0); Albumin/Globulin Ratio 0.8 (0.8-1.8); Anion Gap 5.0 mmol/L (3-11); Aspartate Aminotrans (AST/SGOT 21.0 U/L (12-37); Bilirubin, Total 0.8 mg/dL (0.1-1.0); Blood Urea Nitrogen 16.0 mg/dL (8-24); CO2, Blood 33.0 mmol/L (21-32); Calcium, Blood 7.9 mg/dL (8.5-10.1); Chloride, Blood 104.0 mmol/L (98-108); Creatinine, Blood 0.74 mg/dL (0.60-1.20); Globulin, Blood 3.5 g/dL (2.2-4.0); Glucose, Blood 146.0 mg/dL (70-99); Potassium, Blood 3.1 mmol/L (3.5-5.5); Sodium, Blood 139.0 mmol/L (136-145); Total Protein, Blood 6.3 g/dL (6.4-8.2)
[2025-01-31 21:12] LABS: Hematocrit 29.4 % (37.0-53.0); Hemoglobin 9.6 g/dL (13.5-17.5); Mean Corpuscular HGB Conc 32.7 g/dL (31.5-36.5); Mean Corpuscular Volume 94 fL (80-100); NRBC ABSOLUTE 0.00 K/mm3 (0.00-0.02); NRBC Auto 0.0 /100 WBC (0.0-0.2); Platelet Count 144 K/mm3 (150-400); RDW Coefficient Variation 17.4 % (11.7-14.2); RDW Standard Deviation 60.0 fL (35.1-46.3)
[2025-01-31 21:46] LABS: BASOPHILS ABSOLUTE MAN 0.05 K/mm3 (0.00-0.23); BASOPHILS PERCENT MAN 1 % (0-2); EOSINOPHILS ABSOLUTE MAN 0.16 K/mm3 (0.00-0.68); EOSINOPHILS PERCENT MAN 3 % (0-6); LYMPHOCYTES ABSOLUTE MAN 0.75 K/mm3 (0.84-5.20); LYMPHOCYTES PERCENT MAN 14 % (21-46); MONOCYTES ABSOLUTE MAN 0.70 K/mm3 (0.16-1.47); MONOCYTES PERCENT MAN 13 % (4-13); NEUTROPHILS ABSOLUTE MAN 3.72 K/mm3 (1.96-9.15); SEG NEUTROPHILS PERCENT MAN 69 % (41-73)
== END 2025-02-01 00:16 | disposition home or self-care (01) ==
LOC: ER 19:56
PROVIDERS: Emergency Medicine
DX: S20.419A Abrasion of unspecified back wall of thorax, initial encounter (principal); S09.90XA Unspecified injury of head, initial encounter; I10 Essential (primary) hypertension; Z79.82 Long term (current) use of aspirin; Z79.899 Other long term (current) drug therapy; Z87.891 Personal history of nicotine dependence; W18.30XA Fall on same level, unspecified, initial encounter
CPT/HCPCS: 70450; 80053; 85007; 85027; 93005; 93010; 99285-25

== ENCOUNTER 2025-05-25 17:10 | Inpatient (IN) | payer OTHER ==
[~2025-05-25] VITALS: Ht 182.9 cm; Wt 64.1 kg
[2025-05-25 18:13] LABS: BASOPHILS ABSOLUTE AUTO 0.03 K/mm3 (0.00-0.23); BASOPHILS PERCENT AUTO 0 % (0-2); EOSINOPHILS ABSOLUTE AUTO 0.01 K/mm3 (0.00-0.68); EOSINOPHILS PERCENT AUTO 0 % (0-6); Hematocrit 42.4 % (37.0-53.0); Hemoglobin 14.1 g/dL (13.5-17.5); IMMATURE GRAN ABSOLUTE AUTO 0.06 K/mm3 (0.00-0.10); IMMATURE GRAN PERCENT AUTO 1 % (0-1); LYMPHOCYTES ABSOLUTE AUTO 0.47 K/mm3 (0.84-5.20); LYMPHOCYTES PERCENT AUTO 7 % (21-46); MONOCYTES ABSOLUTE AUTO 0.68 K/mm3 (0.16-1.47); MONOCYTES PERCENT AUTO 10 % (4-13); Mean Corpuscular HGB Conc 33.3 g/dL (31.5-36.5); Mean Corpuscular Volume 88 fL (80-100); NEUTROPHILS ABSOLUTE AUTO 5.77 K/mm3 (1.96-9.15); NEUTROPHILS PERCENT AUTO 82 % (41-73); NRBC ABSOLUTE 0.00 K/mm3 (0.00-0.02); NRBC Auto 0.0 /100 WBC (0.0-0.2); RDW Coefficient Variation 14.5 % (11.7-14.2); RDW Standard Deviation 46.8 fL (35.1-46.3)
[2025-05-25 18:23] LABS: Alanine Aminotransfer (ALT/SGP 20.0 U/L (12-78); Albumin, Blood 3.5 g/dL (3.4-5.0); Albumin/Globulin Ratio 0.9 (0.8-1.8); Anion Gap 11.0 mmol/L (3-11); Aspartate Aminotrans (AST/SGOT 23.0 U/L (12-37); Bilirubin, Total 0.5 mg/dL (0.1-1.0); Blood Urea Nitrogen 27.0 mg/dL (8-24); CO2, Blood 26.0 mmol/L (21-32); Calcium, Blood 8.5 mg/dL (8.5-10.1); Chloride, Blood 99.0 mmol/L (98-108); Creatinine, Blood 0.75 mg/dL (0.60-1.20); Globulin, Blood 4.1 g/dL (2.2-4.0); Glucose, Blood 97.0 mg/dL (70-99); Potassium, Blood 4.8 mmol/L (3.5-5.5); Sodium, Blood 131.0 mmol/L (136-145); Total Protein, Blood 7.6 g/dL (6.4-8.2)
[2025-05-25 18:27] LABS: Platelet Count 178 K/mm3 (150-400)
[2025-05-25] MEDS ORDERED: NS 1,000 ML IV SCH (18:35)
[2025-05-25] MEDS ORDERED: LORazepam 2 MG/ML 1ML Injection IV ONE (19:10)
[2025-05-25 20:23] LABS: Source, Urine Clean Catch
[2025-05-25 20:32] LABS: pH Blood Venous 7.34 (7.34-7.37)
[2025-05-25 20:33] LABS: Bilirubin, Urine Neg (Neg); Glucose Qualitative, Urine Neg (Neg); Ketones, Urine 2+ (Neg); Leukocyte Esterase, Urine 1+ (Neg); Protein, Urine 2+ (Neg); Specific Gravity, Urine 1.020 (1.003-1.022); Urobilinogen, Urine NORM (Normal)
[2025-05-25 20:44] LABS: Color, Urine Yellow (P-Yellow)
[2025-05-25 20:45] LABS: Red Blood Cells, Urine 0-2 /hpf (0-2)
[2025-05-25] MEDS ORDERED: CefTRIAXone Sodium 1,000 MG in NS 100 ML IV ONE (21:10)
[2025-05-25] MEDS ORDERED: FLU VACC TS2025(65UP)/MF59C/PF 45 MCG/0.5 ML SYRINGE IM SCH (22:45)
[2025-05-25] MEDS ORDERED: CefTRIAXone Sodium 1,000 MG in NS 100 ML IV SCH (22:52)
[2025-05-25] MEDS ORDERED: NS 1,000 ML IV ONE (23:00)
[2025-05-26] MEDS ORDERED: LORazepam 2 MG/ML 1ML Injection IV PRN ×2 (00:15→10:55)
[2025-05-26] MEDS ORDERED: LORazepam 2 MG/ML 1ML Injection ONE (00:25)
[2025-05-26] MEDS ORDERED: NS 1,000 ML IV ONE (00:40)
[2025-05-26 00:55] VITALS: BP 147/93
[2025-05-26 01:22] LABS: pH Blood Venous 7.44 (7.34-7.37)
[2025-05-26] MEDS ORDERED: METO25ER PO (01:22)
[2025-05-26] MEDS ORDERED: CITALOPRAM HBR10 MG PO (01:23)
[2025-05-26] MEDS ORDERED: FINA5 PO (01:23)
[2025-05-26] MEDS ORDERED: NITR.4SL SL (01:25)
[2025-05-26 01:48] LABS: BASOPHILS ABSOLUTE AUTO 0.02 K/mm3 (0.00-0.23); BASOPHILS PERCENT AUTO 0 % (0-2); EOSINOPHILS ABSOLUTE AUTO 0.00 K/mm3 (0.00-0.68); EOSINOPHILS PERCENT AUTO 0 % (0-6); Hematocrit 38.8 % (37.0-53.0); Hemoglobin 12.8 g/dL (13.5-17.5); IMMATURE GRAN ABSOLUTE AUTO 0.03 K/mm3 (0.00-0.10); IMMATURE GRAN PERCENT AUTO 1 % (0-1); LYMPHOCYTES ABSOLUTE AUTO 0.54 K/mm3 (0.84-5.20); LYMPHOCYTES PERCENT AUTO 12 % (21-46); MONOCYTES ABSOLUTE AUTO 0.81 K/mm3 (0.16-1.47); MONOCYTES PERCENT AUTO 17 % (4-13); Mean Corpuscular HGB Conc 33.0 g/dL (31.5-36.5); Mean Corpuscular Volume 91 fL (80-100); NEUTROPHILS ABSOLUTE AUTO 3.30 K/mm3 (1.96-9.15); NEUTROPHILS PERCENT AUTO 70 % (41-73); NRBC ABSOLUTE 0.00 K/mm3 (0.00-0.02); NRBC Auto 0.0 /100 WBC (0.0-0.2); Platelet Count 153 K/mm3 (150-400); RDW Coefficient Variation 14.6 % (11.7-14.2); RDW Standard Deviation 48.3 fL (35.1-46.3)
[2025-05-26 01:51] LABS: Alanine Aminotransfer (ALT/SGP 14 U/L (12-78); Albumin, Blood 2.9 g/dL (3.4-5.0); Albumin/Globulin Ratio 0.8 (0.8-1.8); Anion Gap 11 mmol/L (3-11); Aspartate Aminotrans (AST/SGOT 18 U/L (12-37); Bilirubin, Total 0.2 mg/dL (0.1-1.0); Blood Urea Nitrogen 30 mg/dL (8-24); CHOL/HDL RATIO 2.1; CO2, Blood 23 mmol/L (21-32); Calcium, Blood 7.7 mg/dL (8.5-10.1); Chloride, Blood 104 mmol/L (98-108); Cholesterol 124 mg/dL (50-200); Creatinine, Blood 0.81 mg/dL (0.60-1.20); Globulin, Blood 3.5 g/dL (2.2-4.0); Glucose, Blood 101 mg/dL (70-99); HDL Cholesterol 59 mg/dL (>39); LDL/HDL RATIO 0.8; Low Density Lipoprotein Chol 48 mg/dL (0-110); Magnesium, Blood 1.8 mg/dL (1.6-2.4); Potassium, Blood 4.1 mmol/L (3.5-5.5); Sodium, Blood 134 mmol/L (136-145); Total Protein, Blood 6.4 g/dL (6.4-8.2); Triglycerides 83 mg/dL (30-160); Very Low Density Lipoprot Chol 16 mg/dL (6-32)
[2025-05-26] MEDS ORDERED: NS 1,000 ML IV SCH (02:00)
[2025-05-26] MEDS ORDERED: D5W-1/2NS 1,000 ML IV SCH ×2 (03:00→09:15)
[2025-05-26] MEDS ORDERED: D5W-NS 1,000 ML IV SCH (03:00)
[2025-05-26 03:13] VITALS: BP 116/94
--- NOTE | 2025-05-26 04:33 | NUR ---
SHIFT SUMMARY: PATIENT ARRIVED TO THE UNIT FROM ER TODAY. PATIENT IS ALERT AND ORIENTED TO SELF ONLY, DOES NOT ATTEMPT TO RESPOND TO QUESTIONS, ONLY RESPONDS TO PAINFUL STIMULI. PER MANAGER PATIENT CT PATIENT IS IN SINUS TACH WITH BBB AND PVC'S WITH RATE BETWEEN 100'S-110'S BPM. PATIENT IS ON 2L OXYGEN VIA NC WITH >90% SPO2. BP STABLE. 1MG OF IV ATIVAN GIVEN DUE TO PATIENT ATTEMPTING TO PUNCH OTHER STAFF WHEN CHANGING LINENS/ATTENDS AND CLEANING AMIRAH/COCCYX AREAS. IV ATIVAN HAS SINCE MANAGED PATIENTS AGITATION AT THIS TIME. X1 DOSE OF IV D5% WITH 1/2 NS FLUIDS RUNNING AT 100ML/HR PER EMAR, PATIENT WAS ALSO GIVEN X1 IV NS BOLUS OF 1,000ML PER EMAR PRIOR TO THE D5% WITH 1/2 NS[address] MALE PUREWICK IN PLACE WITH DARK YELLOW URINE OUTPUT IN WALL CANESTER. Q6H CBG CHECKS. Q2H REPOSITIONING. PATIENT HAS MULTIPLE SKIN ABRASIONS (SEE PICTURES IN CHART). NO FAMILY HAS BEEN AT BEDSIDE SINCE ARRIVAL TO PCU AT THIS TIME. PATIENT IS LAYING IN BED WITH BED ALARM ON AND CALL LIGHT IN REACH.
[2025-05-26] MEDS ORDERED: Mag Sulfate 1 GM/D5% 100ML 100 ML IV STA (06:58)
[2025-05-26 07:10] VITALS: BP 121/73
[2025-05-26] MEDS ORDERED: NS 250 ML IV PRN (08:25)
[2025-05-26] MEDS ORDERED: Lactobacil 2-S.Thermo-Bifido 1 1 Cap PO SCH (09:00)
--- NOTE | 2025-05-26 09:47 | NUR ---
PALLIATIVE CARE CONSULT: CONSULT RECEIVED FOR DEMENTIA, CARDIAC, INTEGUMENTARY, ADVANCED CARE PLANNING, PSYCH/SOC/MORAL DISTRESS. REVIEWED MEDICAL RECORD, DISCUSSED IN MDR, SPOKE TO DR. WATSON AND PRIMARY RN REGARDING CASE. ATTEMPTED TO VISIT PT IN HIS ROOM. PT DID NOT AWAKE TO GENTLE STIMULI, OR VOICE. PT REPORTED TO BE NON RESPONSIVE ON ADMIT. ATTEMPTED TO CALL TI DISCUSS CONCERNS AND GOC. WENT STRAIGHT TO VOICEMAIL. LEFT MESSAGE REQUESTING RETURN CALL.
--- NOTE | 2025-05-26 10:00 | NUR ---
ASSUMPTION OF CARE REPORT RECIEVED FROM MANUEL Horne RN. THE PT HAS BEEN LETHARGIC AND DIFFICULT TO AROUSE. HE DOES MAKE FACIAL EXPRESSIONS DURING CARE AND OCCASIONALLY MAKES SOUNDS. ON TELE SR 100S-110'S THIS MORNING. BP STABLE. HE HAS BEEN ON OXYMASK W/ 2L BLEED. THE PT HAS A MALE WICKING SYSTEM SET UP TO SUCTION. THE PT WILL REMAIN BEDREST D/T MENTATION AND HX OF FALL 05/23. THE PT'S CALLED AND THIS RN UPDATED HER ON HER PT'S STATUS. PALLITATIVE CARE IS CURRENTLY ON THE PHONE WITH THE HAVING CONVERSATIONS ABOUT COMOFRT CARE AND HOSPICE. SEE NOTES FOR UPDATES.
--- NOTE | 2025-05-26 10:20 | NUR ---
PALLIATIVE CARE NOTE: DEE CALLED BACK. SPOKE TO HER IN LENGTH ABOUT PT PROGRESSIVE DECLINE OVER THE PAST FEW MONTHS AFTER HE HAD AORTOBILIAC GRAFT PLACEMENT SURGERY. PT MENTATION AND HEALTH HAS CONTINUED TO DECLINE. WE DISCUSSED COMFORT MEASURES VS AGGRESSIVE TREATMENT. PT IS NOT DECISIONAL AT THIS TIME. ACCORDING TO PT HAD DNR MEASURES PLACED A FEW YEARS AGO. SHE WANTS HIM TO BE COMFORTABLE AT THIS TIME. IS AGREEABLE TO COMFORT CARE. SHE DOES NOT WANT ANY AGGRESSIVE TREATMENT. EDUCATED ON HOSPICE SERVICES. SHE IS AGREEABLE TO HOSPICE SERVICES HAVING PT RETURN HOME FOR HER TO CARE FOR HIM. SHE DOES REQUEST HE COME HOME ON MONDAY DUE TO HER HAVING MEDICAL APPOINTMENTS SHE NEEDS TO GO TO ON AND MONDAY MORNING. ADVISED INSECTICIDE MIXER WILL REACH OUT AND DISCUSS WITH HER. UPDATED CM, PRIMARY RN. CALLED DR. WATSON. HE WILL CALL ALSO AND THEN PLACE ORDERS.
[2025-05-26] MEDS ORDERED: Morphine Sulfate 10 MG/ML 1MLSYR IV PRN (10:50)
[2025-05-26] MEDS ORDERED: Ondansetron HCl 2 MG / ML 2ML Vial IV PRN (10:50)
[2025-05-26] MEDS ORDERED: Atropine Sulfate 1% Opth Soln 2ML BTL SL PRN (10:55)
[2025-05-26] MEDS ORDERED: Morphine Sulfate 20 MG/1ML 1 ML Oral Syringe SL PRN (10:55)
[2025-05-26] MEDS ORDERED: Haloperidol Lactate Inj. 5 MG/ML Injection IV PRN (10:55)
[2025-05-26] MEDS ORDERED: Acetaminophen 160MG / 5ML 10.15 UDC PO PRN (10:55)
--- NOTE | 2025-05-26 10:56 | NUR ---
CHANGED TO COMFORT CARE SEE PREVIOUS NOTE PALLIATIVE CARE NURSE ANUSHA Bangura TALKED TO THE PT'S DEE @ [phone]. DEE HAS OPTED TO HAVE THE PT TRANSITION TO COMFORT CARE AND DOES NOT WANT FURTHER TREATMENT. CASE MANAGEMENT IS AWARE AND WILL BE CONTACTING THE PT'S TO SEE ABOUT HOSPICE. SEE NOTES FOR UDPATES.
--- NOTE | 2025-05-26 17:18 | NUR ---
END OF SHIFT SUMMARY SEE PREVIOUS NOTES THE PT IS COMFORT CARE AND HAS BEEN SOMULENT THE ENTIRE SHIFT. HE CONTINUES TO MAKE FACIAL EXPRESSIONS WHEN CARE IS PREFORMED. HE WAS MEDICATED TODAY WITH TX TYLENOL FOR GENERALIZED PAIN. THIS SHIFT HE HAS DEVELOPED SOME INCREASED MOISTURE IN HIS LEFT LUNG. MEDICATIONS GIVEN PER EMAR. HE DOES NOT WANT TO KEEP HIS OXYGEN ON AND KEEPS RIPPING IT OFF. CHEST RIDE IS EQUAL AND UNLABORED. EDUCATION WAS PROVIDED TO THE PT'S NEPHEW AND ABOUT HIS STATE AND PRIORITY OF KEEPING HIM COMFORTABLE. SO FAR ONLY THE PT'S NEPHEW HAS BEEN AT BEDSIDE, BUT THE PT'S STATED SHE WAS GOING TO STOP BY WITH MORE FAMILY. SPIRITUAL CARE WAS OFFERED. COMFORT CARE WAS ORDERED. A MALE WICKING SYSTEM IS DRAINING TO GRAVITY. HE REMIAINS A Q2H TURN. CURRENTLY THE PT IS RESTING PEACEFULLY IN THE ROOM WITH THE NEPHEW AT BEDSIDE. SEE NOTES FOR UPDATES.
[2025-05-26] MEDS ORDERED: CefTRIAXone Sodium 1,000 MG in NS 100 ML IV SCH (21:00)
--- NOTE | 2025-05-27 05:27 | NUR ---
SHIFT SUMMARY:: PT IS SOMNOLENT BUT DOES WAKE UP AND RESPOND AT TIMES WHEN I ASK HIM IF HE'S HAVING ANY PAIN. REMAINS ON COMFORT CARE AND IS DUE FOR HOSPICE CONSULT AND POSSIBLE DC WITH HOSPICE TO HOME TODAY. HES KEPT TURNED AND REPOSITIONED Q2HR. NO S/S PAIN THIS SHIFT. NEEDS ARE MET BY STAFF. REMAINS WITH A MALE PUREWICK IN PLACE BUT HAS HAD NO OUTPUT THIS SHIFT. BED IN LOWEST POSITION, CALL LIGHT IN REACH. RESTING WELL IN BED AT THIS TIME.
[2025-05-27] MEDS ORDERED: ACETAMINOPHEN PR (12:01)
[2025-05-27] MEDS ORDERED: ACET325UDC PO (12:02)
[2025-05-27] MEDS ORDERED: ATROPINE SULFATE2 M1 SL (12:03)
[2025-05-27] MEDS ORDERED: Ativan1 MG PO (12:03)
[2025-05-27] MEDS ORDERED: MORP20L SL (12:04)
[2025-05-27] MEDS ORDERED: MORP30 PO (12:05)
[2025-05-27] MEDS ORDERED: TRANSDERM-SCOP1 EA10 TD (12:05)
--- NOTE | 2025-05-27 16:24 | NUR ---
shift summary patient aox1 unable to make needs known. denies pain or sob. he is agitated at times and treated with prn meds per mar. he was q2h turned and had the purewick in place. dc'd to hospice both ivs removed and informed.
== END 2025-05-27 15:40 | disposition hospice, home (50) | DRG 308 ==
LOC: ER 17:10 → PCU 22:43 → ERHOLD 22:43 → PCU 05-26 00:14
PROVIDERS: Emergency Medicine; ADMIT Student in an Organized Health Care Education/Training Program
DX: I48.91 Unspecified atrial fibrillation (principal); G92.8 Other toxic encephalopathy; N39.0 Urinary tract infection, site not specified; J96.11 Chronic respiratory failure with hypoxia; R64 Cachexia; Z68.1 Body mass index [BMI] 19.9 or less, adult; E87.1 Hypo-osmolality and hyponatremia; F03.911 Unspecified dementia, unspecified severity, with agitation; Z51.5 Encounter for palliative care; Z66 Do not resuscitate; J43.9 Emphysema, unspecified; I10 Essential (primary) hypertension; E86.0 Dehydration; E86.1 Hypovolemia; R73.03 Prediabetes; Z96.641 Presence of right artificial hip joint; Z95.828 Presence of other vascular implants and grafts; Z86.73 Personal history of transient ischemic attack (TIA), and cerebral infarction without residual deficits; Z99.81 Dependence on supplemental oxygen; Z79.82 Long term (current) use of aspirin; Z79.02 Long term (current) use of antithrombotics/antiplatelets; Z87.891 Personal history of nicotine dependence
CPT/HCPCS: 36415; 70450; 71045; 80053; 80061; 81001; 82803; 82947; 83036; 83735; 84484; 85025; 87077; 87086; 87186; 93005; 93010; 93880; 96365; 96375; 99285-25; A6590; A9270; J0696; J2060; J3475; J7030; J7042; J7050